=== PATIENT | female | born 1965 | race Caucasian/White ===

== ENCOUNTER → 2020-12-16 | Outpatient (CLI) | payer OTHER | END | disposition home or self-care (01) | LOC: RAH 08:50 | PROVIDERS: ATTEND Internal Medicine | DX: Z12.31 Encounter for screening mammogram for malignant neoplasm of breast (principal) | CPT/HCPCS: 77067 ==

== ENCOUNTER → 2021-02-22 | Outpatient (CLI) | payer OTHER | END | disposition home or self-care (01) | LOC: LAB 12:44 | PROVIDERS: ATTEND Internal Medicine | DX: Z01.812 Encounter for preprocedural laboratory examination (principal); J98.4 Other disorders of lung | CPT/HCPCS: 36415; 82565; 84520 ==

== ENCOUNTER → 2021-02-24 | Outpatient (CLI) | payer OTHER ==
[~2021-02-24] MED LIST: DiphenhydrAMINE HCL 50 MG/ML VIAL ONE; IOHEXOL-350 50ML VIAL IV ONE; SOLU-MEDROL 125MG VIAL ONE
== END | disposition home or self-care (01) ==
LOC: RAH 12:38
PROVIDERS: ATTEND Internal Medicine
DX: R91.1 Solitary pulmonary nodule (principal)
CPT/HCPCS: 71260; J1200; J2930; Q9967

== ENCOUNTER → 2021-06-21 | Outpatient (CLI) | payer OTHER | END | disposition home or self-care (01) | LOC: DAH 10:33 | PROVIDERS: ATTEND Clinical Nurse Specialist Family Health | DX: J45.901 Unspecified asthma with (acute) exacerbation (principal); M47.815 Spondylosis without myelopathy or radiculopathy, thoracolumbar region | CPT/HCPCS: 71046 ==

== ENCOUNTER → 2022-01-14 | Outpatient (CLI) | payer OTHER | END | disposition home or self-care (01) | LOC: RAH 08:23 | PROVIDERS: ATTEND Internal Medicine | DX: R10.2 Pelvic and perineal pain (principal); R19.00 Intra-abdominal and pelvic swelling, mass and lump, unspecified site; Z90.710 Acquired absence of both cervix and uterus | CPT/HCPCS: 76856 ==

== ENCOUNTER → 2022-03-15 | Outpatient (CLI) | payer OTHER | END | disposition home or self-care (01) | LOC: RAH 14:09 | PROVIDERS: ATTEND Internal Medicine Critical Care Medicine | DX: R91.1 Solitary pulmonary nodule (principal); M47.815 Spondylosis without myelopathy or radiculopathy, thoracolumbar region | CPT/HCPCS: 71250 ==

== ENCOUNTER → 2022-04-20 | Outpatient (CLI) | payer OTHER | END | disposition home or self-care (01) | LOC: RAH 11:40 | PROVIDERS: ATTEND Physician Assistant | DX: M54.2 Cervicalgia (principal) | CPT/HCPCS: 72050 ==